=== PATIENT | male | born 1970 | race Caucasian/White ===

== ENCOUNTER 2017-12-16 20:57 | Emergency (ER) | END 2017-12-17 16:23 | disposition home or self-care (01) ==

== ENCOUNTER 2018-11-10 21:22 | Emergency (ER) | payer SELFPAY ==
[~2018-11-10] VITALS: Ht 167.6 cm; Wt 90.0 kg
[2018-11-10 21:27] VITALS: BP 121/63; PULSE 117; RESP 20; Ht 167.6 cm; Wt 90.0 kg
== END 2018-11-11 01:10 | disposition left against medical advice (07) ==
LOC: E/R 21:22
DX: Z53.21 Procedure and treatment not carried out due to patient leaving prior to being seen by health care provider (principal)